=== PATIENT | female | born 1965 | race African-American/Black ===

== ENCOUNTER 2019-02-15 12:51 | Emergency (ER) | payer MEDICAID ==
[~2019-02-15] VITALS: Ht 167.6 cm; Wt 83.0 kg
[~2019-02-15 12:51] MED LIST: FLUT50DI; GABA-290
[2019-02-15 14:06] LABS: BASOPHILS % 1.1 % (0.0-2.0); HEMOGLOBIN. 12.9 g/dL (12.0-16.0); LYMPHOCYTES % 24.5 % (20.0-50.0); MEAN CORPUSCULAR HEMOGLOBIN 30.4 pg (28.0-32.0); MEAN CORPUSCULAR VOLUME 89.6 fL (81.0-99.0); MEAN PLATELET VOLUME 9.2 fl (7.4-10.4); MONOCYTES % 6.9 % (2.0-8.0); NEUTROPHILS % 65.5 % (40.0-76.0); PLATELET 232 x1000/uL (130-400); RED BLOOD CELL COUNT 4.24 mill/uL (4.2-5.4)
[2019-02-15 14:16] LABS: INR 1.1; PROTHROMBIN TIME 10.9 sec (9.6-11.0)
[2019-02-15 14:23] LABS: CLARITY URINE CLEAR (CLEAR); COLOR URINE YELLOW (YELLOW); KETONES URINE NEGATIVE (NEGATIVE); LEUKOCYTE ESTERASE URINE TRACE (NEGATIVE); NITRITE URINE NEGATIVE (NEGATIVE); OCCULT BLOOD URINE NEGATIVE (NEGATIVE); PH URINE 5.5 (4.5-8.0); PROTEIN URINE NEGATIVE (NEGATIVE); SPECIFIC GRAVITY URINE 1.011 (1.005-1.030); UROBILINOGEN URINE 0.2 E.U./dL (0.2-1.0)
[2019-02-15 14:24] LABS: CHLORIDE 103 mEq/L (98-107)
[2019-02-15 15:26] VITALS: BP 103/72
== END 2019-02-15 15:29 | disposition home or self-care (01) ==
LOC: ER 12:51
DX: N39.0 Urinary tract infection, site not specified (principal); R03.0 Elevated blood-pressure reading, without diagnosis of hypertension; Z32.02 Encounter for pregnancy test, result negative
CPT/HCPCS: 36415; 81003; 81025; 99283

== ENCOUNTER 2020-09-08 09:34 | Inpatient (IN) | payer MEDICAID ==
[~2020-09-08] VITALS: Ht 170.2 cm; Wt 93.9 kg
[2020-09-08] MEDS ORDERED: METOCLOPRAMIDE HCL 10MG/2ML VIAL IV ONE (10:45)
[2020-09-08] MEDS ORDERED: DIPHENHYDRAMINE 50MG/ML VIAL IV ONE (10:45)
[2020-09-08 11:24] LABS: BASOPHILS % 0.8 % (0.0-2.0); EOSINOPHILS % 2.8 % (0.0-5.0); HEMATOCRIT. 36.1 % (36.0-48.0); HEMOGLOBIN. 12.2 g/dL (12.0-16.0); LYMPHOCYTES % 25.3 % (20.0-50.0); MEAN CORPUSCULAR HEMOGLOBIN 29.8 pg (28.0-32.0); MEAN CORPUSCULAR VOLUME 88.3 fL (81.0-99.0); MEAN PLATELET VOLUME 9.5 fl (7.4-10.4); MONOCYTES % 6.9 % (2.0-8.0); NEUTROPHILS % 64.2 % (40.0-76.0); PLATELET 255 x1000/uL (130-400); RED BLOOD CELL COUNT 4.09 mill/uL (4.2-5.4)
[2020-09-08 11:29] LABS: CHLORIDE 103 mEq/L (98-107)
[2020-09-08 11:31] LABS: PROTHROMBIN TIME 11.2 sec (9.6-11.0)
[2020-09-08 11:42] LABS: CLARITY URINE CLEAR (CLEAR); COLOR URINE YELLOW (YELLOW); KETONES URINE NEGATIVE (NEGATIVE); LEUKOCYTE ESTERASE URINE NEGATIVE (NEGATIVE); NITRITE URINE NEGATIVE (NEGATIVE); OCCULT BLOOD URINE NEGATIVE (NEGATIVE); PH URINE 6.5 (4.5-8.0); PROTEIN URINE NEGATIVE (NEGATIVE); SPECIFIC GRAVITY URINE 1.027 (1.005-1.030)
[2020-09-08] MEDS ORDERED: METHYLPREDNISOLONE 40MG/ML INJ IV ONE (13:45)
[2020-09-08] MEDS ORDERED: IOHEXOL-350 100 ML BOTTLE ONE (14:39)
[2020-09-08 17:00] VITALS: BP 153/88
[2020-09-08 17:30] VITALS: BP 153/88
[2020-09-08] MEDS ORDERED: IBUP-2029 MT (17:43)
[2020-09-08] MEDS ORDERED: LORA5TAB8 MT (17:43)
[2020-09-08] MEDS ORDERED: HYDROCODONE/ACETAMINOPHEN 5/325MG TABLET PO PRN (19:45)
[2020-09-08] MEDS ORDERED: IPRATROPIUM/ALBUTEROL 0.5-3(2.5)MG/3ML NEB HHN PRN (19:45)
[2020-09-08] MEDS ORDERED: LORAZEPAM 0.5MG TABLET PO PRN (19:45)
[2020-09-08] MEDS ORDERED: DOCUSATE SODIUM 100MG CAPSULE PO PRN (19:45)
[2020-09-08] MEDS ORDERED: CLONIDINE 0.1MG TABLET PO PRN (19:45)
[2020-09-08] MEDS ORDERED: ACETAMINOPHEN 325MG TABLET PO PRN ×2 (19:45)
[2020-09-08 20:00] VITALS: BP 120/63
[2020-09-08] MEDS: TRAMADOL 50MG TABLET PO PRN (23:37)
[2020-09-09] VITALS: BP 115/57
[2020-09-09] MEDS ORDERED: SODIUM CHLORIDE 0.9% IV NR (01:00)
[2020-09-09] MEDS ORDERED: METHYLPREDNISOLONE SOD SUCC IV NR (01:00)
[2020-09-09 04:00] VITALS: BP 129/77
[2020-09-09 05:08] LABS: CHLORIDE 105 mEq/L (98-107)
[2020-09-09 05:25] LABS: BASOPHILS % 0.9 % (0.0-2.0); EOSINOPHILS % 1.4 % (0.0-5.0); HEMATOCRIT. 37.8 % (36.0-48.0); HEMOGLOBIN. 12.3 g/dL (12.0-16.0); LYMPHOCYTES % 18.1 % (20.0-50.0); MEAN CORPUSCULAR VOLUME 88.8 fL (81.0-99.0); MEAN PLATELET VOLUME 10.1 fl (7.4-10.4); MONOCYTES % 3.5 % (2.0-8.0); NEUTROPHILS % 76.1 % (40.0-76.0); PLATELET 253 x1000/uL (130-400); RED BLOOD CELL COUNT 4.25 mill/uL (4.2-5.4); RED CELL DISTRIBUTION WIDTH 13.2 % (11.6-14.6)
[2020-09-09 08:00] VITALS: BP 132/72
[2020-09-09] MEDS ORDERED: METHYLPREDNISOLONE SOD SUCC 125 MG/2 ML VIAL IV ONE (08:15)
[2020-09-09] MEDS: TRAMADOL 50MG TABLET PO PRN ×2 (09:36→16:59)
[2020-09-09] MEDS ORDERED: METHYLPREDNISOLONE SOD SUCC 1,000 MG in DEXT 5% WATER 250 ML IV ONE (10:00)
[2020-09-09 12:00] VITALS: BP 137/88
[2020-09-09 16:00] VITALS: BP 139/78
[2020-09-09] MEDS: ONDANSETRON HCL 4MG/2ML INJ IV PRN (16:47)
[2020-09-09 20:00] VITALS: BP 134/80
[2020-09-09] MEDS ORDERED: PILOCARPINE HCL 5MG TABLET PO SCH (22:00)
[2020-09-10] VITALS: BP 141/76
[2020-09-10] MEDS: POLYVINYL ALCOHOL OPHTH DROPS 15ML EACHEYE SCH ×3 (00:16→12:32)
[2020-09-10] MEDS: ONDANSETRON HCL 4MG/2ML INJ IV PRN ×3 (02:43→18:01)
[2020-09-10] MEDS: TRAMADOL 50MG TABLET PO PRN ×2 (02:44→09:03)
[2020-09-10 04:00] VITALS: BP 115/64
[2020-09-10 06:45] LABS: AMYLASE 74 IU/L (25-115)
[2020-09-10 08:00] VITALS: BP 121/75
[2020-09-10] MEDS ORDERED: PREDNISONE 10MG TABLET PO SCH (09:00)
[2020-09-10 12:00] VITALS: BP 114/68
[2020-09-10] MEDS ORDERED: PILO5TAB17 PO (14:57)
[2020-09-10] MEDS ORDERED: PRED10TA PO (14:57)
[2020-09-10 15:47] VITALS: BP 114/68
[2020-09-10 16:00] VITALS: BP 120/87
[2020-09-11] MEDS ORDERED: PILOCARPINE HCL 5MG TABLET PO SCH (06:00)
[2020-09-12 09:09] LABS: ANTI-DNA DOUBLE STRANDED QUANT < 1 IU/mL (0-9); G6PD RBC 4.16 x10E6/uL (3.77-5.28)
[2020-09-12 15:10] LABS: G6PD QUANTITATIVE 278 (127-427)
[2020-09-13 09:10] LABS: ALDOLASE 6.9 U/L (3.3-10.3)
[2020-09-13 15:11] LABS: ANGIOTENSION CONVERTING ENZYME 36 U/L (14-82)
[2020-09-13 19:09] LABS: ANA IFA Negative (.)
[2020-09-14 17:10] LABS: ANTI-MYELOPEROXIDASE AB < 9.0 U/mL (0.0-9.0); ANTI-PROTEINASE 3 ABS < 3.5 U/mL (0.0-3.5)
[2020-09-16 13:07] LABS: ATYPICAL P-ANCA <1:20 titer (Neg:<1:20); CYTOPLASMIC C-ANCA <1:20 titer (Neg:<1:20); PERINUCLEAR P-ANCA <1:20 titer (Neg:<1:20)
== END 2020-09-10 18:15 | disposition home or self-care (01) | DRG 346 ==
LOC: ER 09:34 → 6EST 14:49 → EDBEDREQTM 14:50 → EDBEDREQ 14:50 → EDBEDREQSVC 14:50 → ENRESERV 15:35
PROVIDERS: ADMIT Internal Medicine; ATTEND Internal Medicine
DX: M31.6 Other giant cell arteritis (principal); M35.00 Sjogren syndrome, unspecified; G43.909 Migraine, unspecified, not intractable, without status migrainosus; M13.0 Polyarthritis, unspecified; Z98.1 Arthrodesis status; Z88.5 Allergy status to narcotic agent
CPT/HCPCS: 36415; 70491; 70551; 80048; 80053; 81003; 82085; 82150; 82164; 82955; 83520; 85025; 85041; 85651; 86141; 86160; 86225; 86256; 86431; 86592; 86780; 93005; 99285; J1200; J2405; J2765; J2930; J7050; J7060; J7512; Q9967

== ENCOUNTER 2021-06-09 11:28 | Emergency (ER) | payer MEDICAID ==
[~2021-06-09] VITALS: Ht 167.6 cm; Wt 98.0 kg
[~2021-06-09 11:28] MED LIST changes: +IBUP-2029 MT; +LORA5TAB8 MT; +PILO5TAB17 PO; +PRED10TA PO
[2021-06-09] MEDS ORDERED: IBUPROFEN 800MG TABLET PO ONE (11:45)
[2021-06-09 11:50] VITALS: BP 169/87
[2021-06-09] MEDS ORDERED: IBUP-2029 MT (12:33)
== END 2021-06-09 13:53 | disposition home or self-care (01) ==
LOC: ER 11:28
DX: S90.32XA Contusion of left foot, initial encounter (principal); Z88.5 Allergy status to narcotic agent; Z98.890 Other specified postprocedural states; X58.XXXA Exposure to other specified factors, initial encounter; Y93.89 Activity, other specified; Y92.89 Other specified places as the place of occurrence of the external cause; Y99.8 Other external cause status
CPT/HCPCS: 73630; 99283

== ENCOUNTER 2021-12-19 04:51 | Emergency (ER) | payer MEDICAID ==
[~2021-12-19] VITALS: Ht 167.6 cm; Wt 98.2 kg
[2021-12-19] MEDS ORDERED: KETOROLAC 60MG/2ML VIAL IM ONE (07:30)
[2021-12-19] MEDS ORDERED: T3 PO (08:42)
[2021-12-19] MEDS ORDERED: IBUP-2029 MT (08:42)
[2021-12-19] MEDS ORDERED: HYDR-4001 MT (08:42)
[2021-12-19 09:07] VITALS: BP 150/80
== END 2021-12-19 09:26 | disposition home or self-care (01) ==
LOC: ER 04:51
DX: S82.832A Other fracture of upper and lower end of left fibula, initial encounter for closed fracture (principal); W01.0XXA Fall on same level from slipping, tripping and stumbling without subsequent striking against object, initial encounter; Y93.89 Activity, other specified; Y92.018 Other place in single-family (private) house as the place of occurrence of the external cause
CPT/HCPCS: 73610; 96372; 99283; J1885

== ENCOUNTER 2022-12-09 14:31 | Emergency (ER) | payer MEDICAID ==
[~2022-12-09] VITALS: Ht 167.6 cm; Wt 90.7 kg
[~2022-12-09 14:31] MED LIST changes: +HYDR-4001 MT
[2022-12-09 17:03] VITALS: BP 133/83
== END 2022-12-09 17:05 | disposition home or self-care (01) ==
LOC: ER 14:31
DX: M79.606 Pain in leg, unspecified (principal)
CPT/HCPCS: 99281